=== PATIENT | female | born 1985 | race Caucasian/White ===

== ENCOUNTER 2019-11-12 16:49 | Emergency (ER) | payer BC ==
[~2019-11-12] VITALS: Ht 152.4 cm; Wt 70.3 kg
[2019-11-12] MEDS ORDERED: LOMAIRA8 MG PO (16:58)
[2019-11-12 17:40] VITALS: BP 125/70
== END 2019-11-12 17:41 | disposition home or self-care (01) ==
LOC: M.ERS 16:49
DX: S61.211A Laceration without foreign body of left index finger without damage to nail, initial encounter (principal); W26.8XXA Contact with other sharp object(s), not elsewhere classified, initial encounter; Y93.89 Activity, other specified; Y92.89 Other specified places as the place of occurrence of the external cause; Y99.8 Other external cause status

== ENCOUNTER 2020-08-23 19:09 | Emergency (ER) | payer OTHER ==
[~2020-08-23] VITALS: Ht 152.4 cm; Wt 65.3 kg
[~2020-08-23 19:09] MED LIST: LOMAIRA8 MG PO
[2020-08-23 21:03] LABS: ABSOLUTE LYMPHOCYTES 1.3 thou/uL (0.8-5.3); ABSOLUTE MONOCYTES 0.4 thou/uL (0.0-1.2); ABSOLUTE NEUTROPHILS 4.8 thou/uL (1.6-8.1); BASOPHILS 0.3 %; EOSINOPHILS 0.5 %; HEMATOCRIT 32.7 % (37.0-47.0); HEMOGLOBIN 10.8 gm/dL (12.0-15.0); LYMPHOCYTES 20.2 %; MCH 29.3 pg (26.0-34.0); MCHC 32.9 g/dL (28.0-37.0); MCV 89.2 fL (80.0-100.0); MONOCYTES 6.7 %; MPV 7.8 fl. (7.2-11.1); NUCLEATED RBCS 0 /100WBC; PLATELET COUNT* 367 thou/uL (150-400); POLYS 72.3 %; RBC 3.67 mil/uL (4.20-5.00); RDW-CV 13.9 % (10.5-14.5); WBC 6.6 thou/uL (4.0-11.0)
[2020-08-23 21:15] LABS: CALCIUM 9.2 mg/dL (8.5-10.1); CREATININE 0.8 mg/dL (0.6-1.3); POTASSIUM 3.3 mmol/L (3.5-5.1)
[2020-08-23 21:20] LABS: ALBUMIN 3.9 g/dL (3.4-5.0); TOTAL BILIRUBIN 0.5 mg/dL (<0.1-1.0); TOTAL PROTEIN 7.9 g/dL (6.4-8.2)
[2020-08-23 21:45] LABS: URINE BILIRUBIN NEGATIVE (Negative); URINE BLOOD NEGATIVE (Negative); URINE CLARITY CLEAR; URINE COLOR YELLOW; URINE GLUCOSE-RANDOM NEGATIVE (Negative); URINE KETONES 1+ (Negative); URINE LEUKOCYTES-REFLEX NEGATIVE (Negative); URINE NITRITE-REFLEX NEGATIVE (Negative); URINE PROTEIN NEGATIVE (Negative); URINE SPECIFIC GRAVITY 1.025 (1.005-1.030); URINE UROBILINOGEN 0.2 E.U./dl (0.2-1.0)
[2020-08-23 22:15] VITALS: BP 117/74
--- NOTE | 2020-08-24 12:10 | EKG ---
[place] [address] ELECTROCARDIOGRAM REPORT Name: TOBIN RAMSAY Room: [facility]#: [id number] Admission: 08/23/20 Attend Phys: Discharge: 08/23/20 Date of : 83 Date of Service: 08/23/201917 Report #: [id number] THIS REPORT FOR: //name// [facility] ED Test Date: 2020-08-23 Test Time: 19:18:35 Pat Name: TOBIN RAMSAY Department: Room: Gender: F [employer]: [place] : 1985 Requested By: Tracey Hutchins Order Number: [id number] MD: Darío Cabrera Measurements Intervals [place] Rate: 68 P: 41 IA: 128 QRS: 18 QRSD: 83 T: 25 QT: 428 QTc: 456 Interpretive Statements Sinus rhythm No previous ECG available for comparison Electronically Signed On 08-24-2020 12:09:59 REINSTATEMENT CLERK by Darío Cabrera [email or web address] <ELECTRONICALLY SIGNED> By: Darío Cabrera MD, [facility] 08/24/20 1209 17 17 Darío Cabrera MD, FACC /EPI
== END 2020-08-23 22:15 | disposition home or self-care (01) ==
LOC: M.ERS 19:09
PROVIDERS: Emergency Medicine
DX: R07.89 Other chest pain (principal); Z20.828 Contact with and (suspected) exposure to other viral communicable diseases; R68.83 Chills (without fever); Z98.51 Tubal ligation status; Z79.899 Other long term (current) drug therapy